=== PATIENT | female | born 2000 | race Caucasian/White ===

== ENCOUNTER → 2020-12-10 10:55 | Outpatient (CLI) | payer BC, SELFPAY ==
--- NOTE | 2020-12-10 11:01 | DI.RAD.S_ITS ---
PROCEDURE: XR WRIST LT MIN 3V INDICATIONS: LT WRIST PAIN TECHNIQUE: 3 views of the wrist were acquired. COMPARISON: [facility], WRIST MINIMUM 3 VIEWS RIGHT, 04/25/2012, 12:48. [facility], WRIST MINIMUM 3 VIEWS RIGHT, 04/09/2012, 20:30. FINDINGS: Bones: No fractures or dislocations. No suspicious bony lesions. Scaphoid view: No trauma found. Soft tissues: No suspicious soft tissue calcifications. IMPRESSION: No trauma found, source of persistent pain is not seen. Dictated by: Hiram Lunsford M.D. on 12/10/2020 at 16:42 Approved by: Hiram Lunsford M.D. on 12/10/2020 at 16:43
== END ==
PROVIDERS: Family Provider Family Medicine; PCP Family Medicine; Referring Provider Family Medicine; Visit Provider Family Medicine
DX: M67.432 Ganglion, left wrist (principal); M25.532 Pain in left wrist
CPT/HCPCS: 73110